=== PATIENT | female | born 1980 | race American Indian/Alaskan Native ===

== ENCOUNTER 2017-09-21 11:57 | Emergency (ER) | payer OTHER ==
[2017-09-21 12:50] LABS: Basophils % (Auto) 0.7 % (0.0-1.8); Eosinophils % (Auto) 0.8 % (0.0-4.3); Hematocrit 40.9 % (30.3-42.9); Hemoglobin 13.4 gm/dl (10.1-14.3); Mean Corpuscular HGB Conc 33 % (30-34); Mean Corpuscular Hemoglobin 28 pg (28-32); Mean Corpuscular Volume 86 fl (79-97); Platelet Count 346 K/mm3 (140-440); Red Blood Count 4.79 M/mm3 (3.65-5.03); Red Cell Distribution Width 13.4 % (13.2-15.2); White Blood Count 5.4 K/mm3 (4.5-11.0)
[2017-09-21 13:08] LABS: Anion Gap 18 mmol/L; BUN/Creatinine Ratio 10; Blood Urea Nitrogen 6 mg/dL (7-17); Calcium 9.1 mg/dL (8.4-10.2); Carbon Dioxide 22 mmol/L (22-30); Chloride 100.4 mmol/L (98-107); Glucose 98 mg/dL (65-100); Sodium 136 mmol/L (137-145)
[2017-09-21 13:20] LABS: Bilirubin,Urine NEG (Negative); Blood,Urine MOD (Negative); Ketones,Urine NEG (Negative); Leukocyte Esterase,Urine TR (Negative); Mucus,Urine 1+ /HPF; Nitrite,Urine NEG (Negative); Protein,Urine <15 mg/dL mg/dL (Negative)
--- NOTE | 2017-09-21 15:16 | XRay Report ---
FINAL REPORT PROCEDURE: XR CHEST ROUTINE 2V TECHNIQUE: Two views of the chest are obtained HISTORY: chest pain COMPARISON: No prior studies are available for comparison. FINDINGS: The heart is normal in size. There is no focal infiltrate, pneumothorax or pleural effusion. IMPRESSION: No abnormalities are seen.
[2017-09-21] MEDS ORDERED: TORADOL IM ONE (21:03)
[2017-09-21] MEDS ORDERED: PERCOCET 5/325 PO ONE (21:03)
[2017-09-21 21:20] VITALS: BP 132/91
--- NOTE | 2017-09-21 21:22 | Emergency Department Report ---
ED Chest Pain HPI - General Chief Complaint: Chest Pain Stated Complaint: CHEST PAIN Time Seen by Provider: 09/21/17 20:49 Source: patient Mode of arrival: Ambulatory Limitations: No Limitations - History of Present Illness Initial Comments: 37-year-old female with a past medical history of -induced hypertension 23 years ago that resolved after delivery presents hospitalist complaints of right-sided neck and right-sided and sternal chest pain 6 days. Pain is constant, aching sharp. Rated 10/10 intensity. With movement and palpation. Patient denies shortness of breath, diaphoresis, fever, cough, or recent trauma. Patient states her BP was checked 5 months ago and she was not hypertensive. No complaints of calf tenderness, edema, recent travel, control pill use, history of PE status DVT. Severity scale (0 -10): 10 - Related Data Previous Rx's Medication Instructions Recorded Last Taken Type HYDROcodone/APAP 5-325 [[place] 1 each PO Q4HR PRN #20 tablet 09/21/17 Unknown Rx 5/325] Ibuprofen [Motrin] 800 mg PO Q8HR PRN #30 tablet 09/21/17 Unknown Rx Allergies Allergy/AdvReac Type Severity Reaction Status Date / Time No Known Allergies Allergy Unverified 09/21/17 12:22 Heart Score - HEART Score History: Slightly suspicious EKG: Normal Age: < 45 Risk factors: No known risk factors Troponin: < normal limit HEART Score: 0 ED Review of Systems ROS: Stated complaint: CHEST PAIN Other details as noted in HPI Comment: All other systems reviewed and negative Other: Constitutional: No fevers chills Eyes: No eye pain visual changes ENT: No ear pain or throat pain Neck: Denies pain Respiratory: Denies cough wheezing shortness of breath Cardiovascular: Deniepalpitations, syncope GI: Denies abdominal pain,vomiting, diarrhea : Denies dysuria Musculoskeletal: Denies back pain Skin: Denies rash, lesions, erythema Neurologic: Denies headache, numbness, weakness Psychiatric: Denies suicidal ideation, hallucinations ED Past Medical Hx - Past Medical History Hx Hypertension: Yes (during childbirth) - Social History Smoking Status: Never Smoker Substance Use Type: Alcohol - Medications Home Medications: Home Medications Medication Instructions Recorded Confirmed Last Taken Type HYDROcodone/APAP 5-325 [[place] 1 each PO Q4HR PRN #20 tablet 09/21/17 Unknown Rx 5/325] Ibuprofen [Motrin] 800 mg PO Q8HR PRN #30 tablet 09/21/17 Unknown Rx ED Physical Exam - General Limitations: No Limitations - Other Other exam information: General: No limitations, patient is alert in no acute distress Head exam: Atraumatic, normocephalic Eyes exam: Normal appearance ENT: Moist mucous membrane, normal oropharynx Neck exam: Normal inspection, full range of motion, no meningismus nontender Respiratory exam: Clear to auscultation bilateral, no wheezes, rales, crackles Cardiovascular: Normal rate and rhythm, tenderness to right trapezius and upper thoracic rale. Tenderness to right upper chest wall and sternum Abdomen: Soft, nondistended, and nontender, with normal bowel sounds, no rebound, or guarding Extremity: Full range of motion normal inspection no deformity, tenderness or edema Back: Normal Inspection, full range of motion, no tenderness Neurologic: Alert, oriented x3, cranial nerves intact, no motor or sensory deficit Psychiatric: normal affect, normal mood Skin: Warm, dry, intact ED Course Vital Signs 09/21/17 09/21/17 09/21/17 12:18 18:00 20:46 Temperature 98.6 F 98.4 F Pulse Rate 95 H 73 Respiratory 18 18 18 Rate Blood Pressure 162/102 150/87 Blood Pressure [Right] O2 Sat by Pulse 99 100 100 Oximetry 09/21/17 09/21/17 21:19 21:20 Temperature Pulse Rate 70 Respiratory 18 18 Rate Blood Pressure Blood Pressure 132/91 [Right] O2 Sat by Pulse 100 Oximetry - Reevaluation(s) Reevaluation #1: 09/21/17 22:07 pain improve her Percocet and Toradol patient now able to move BARBARA score - Barbara Score Age > 65: (0) No Aspirin use within the Past 7 Days: (0) No 3 or more CAD Risk Factors: (0) No 2 or more Angina events in past 24 hrs: (0) No Known CAD with more than 50% Stenosis: (0) No Elevated Cardiac Markers: (0) No ST Deviation Greater than 0.5mm: (0) No BARBARA Score: 0 ED Medical Decision Making - Lab Data Result diagrams: 09/21/17 12:29 09/21/17 12:29 Lab Results 11/12/17 11/12/17 11/12/17 Range/Units 12:29 12:29 12:52 WBC 5.4 (4.5-11.0) K/mm3 RBC 4.79 (3.65-5.03) M/mm3 Hgb 13.4 (10.1-14.3) gm/dl Hct 40.9 (30.3-42.9) % MCV 86 (79-97) fl MCH 28 (28-32) pg MCHC 33 (30-34) % RDW 13.4 (13.2-15.2) % Plt Count 346 (140-440) K/mm3 Lymph % (Auto) 34.2 (13.4-35.0) % [place] % (Auto) 10.9 H (0.0-7.3) % Eos % (Auto) 0.8 (0.0-4.3) % Baso % (Auto) 0.7 (0.0-1.8) % Lymph # 1.8 (1.2-5.4) K/mm3 [place] # 0.6 (0.0-0.8) K/mm3 Eos # 0.0 (0.0-0.4) K/mm3 Baso # 0.0 (0.0-0.1) K/mm3 Seg Neutrophils % 53.4 (40.0-70.0) % Seg Neutrophils # 2.9 (1.8-7.7) K/mm3 Sodium 136 L (137-145) mmol/L Potassium 4.0 (3.6-5.0) mmol/L Chloride 100.4 (98-107) mmol/L Carbon Dioxide 22 (22-30) mmol/L Anion Gap 18 mmol/L BUN 6 L (7-17) mg/dL Creatinine 0.6 L (0.7-1.2) mg/dL Estimated GFR > 60 ml/min BUN/Creatinine Ratio 10 % Glucose 98 (65-100) mg/dL Calcium 9.1 (8.4-10.2) mg/dL Troponin T < 0.010 (0.00-0.029) ng/mL Urine Color Yellow (Yellow) Urine Turbidity Clear (Clear) Urine pH 6.0 (5.0-7.0) Ur Specific [place] 1.019 (1.003-1.030) Urine Protein <15 mg/dl (Negative) mg/dL Urine Glucose (UA) Neg (Negative) mg/dL Urine Ketones Neg (Negative) mg/dL Urine Blood Mod (Negative) Urine Nitrite Neg (Negative) Urine Bilirubin Neg (Negative) Urine Urobilinogen 2.0 (<2.0) mg/dL Ur Leukocyte Esterase Tr (Negative) Urine WBC (Auto) 12.0 H (0.0-6.0) /HPF Urine RBC (Auto) 5.0 (0.0-6.0) /HPF U Epithel Cells (Auto) 27.0 H (0-13.0) /HPF Urine Mucus 1+ /HPF Urine HCG, Qual Negative (Negative) 09/21/17 09/21/17 Range/Units 15:22 18:21 WBC (4.5-11.0) K/mm3 RBC (3.65-5.03) M/mm3 Hgb (10.1-14.3) gm/dl Hct (30.3-42.9) % MCV (79-97) fl MCH (28-32) pg MCHC (30-34) % RDW (13.2-15.2) % Plt Count (140-440) K/mm3 Lymph % (Auto) (13.4-35.0) % [place] % (Auto) (0.0-7.3) % Eos % (Auto) (0.0-4.3) % Baso % (Auto) (0.0-1.8) % Lymph # (1.2-5.4) K/mm3 [place] # (0.0-0.8) K/mm3 Eos # (0.0-0.4) K/mm3 Baso # (0.0-0.1) K/mm3 Seg Neutrophils % (40.0-70.0) % Seg Neutrophils # (1.8-7.7) K/mm3 Sodium (137-145) mmol/L Potassium (3.6-5.0) mmol/L Chloride (98-107) mmol/L Carbon Dioxide (22-30) mmol/L Anion Gap mmol/L BUN (7-17) mg/dL Creatinine (0.7-1.2) mg/dL Estimated GFR ml/min BUN/Creatinine Ratio % Glucose (65-100) mg/dL Calcium (8.4-10.2) mg/dL Troponin T < 0.010 < 0.010 (0.00-0.029) ng/mL Urine Color (Yellow) Urine Turbidity (Clear) Urine pH (5.0-7.0) Ur Specific [place] (1.003-1.030) Urine Protein (Negative) mg/dL Urine Glucose (UA) (Negative) mg/dL Urine Ketones (Negative) mg/dL Urine Blood (Negative) Urine Nitrite (Negative) Urine Bilirubin (Negative) Urine Urobilinogen (<2.0) mg/dL Ur Leukocyte Esterase (Negative) Urine WBC (Auto) (0.0-6.0) /HPF Urine RBC (Auto) (0.0-6.0) /HPF U Epithel Cells (Auto) (0-13.0) /HPF Urine Mucus /HPF Urine HCG, Qual (Negative) - EKG Data -: EKG Interpreted by Nh EKG shows normal: sinus rhythm, axis (qrs 56), intervals (pr normal), QRS complexes (78), ST-T waves (no stemi, t inv, prob lvh) Rate: normal (89) - EKG Data When compared to previous EKG there are: previous EKG unavailable - Radiology Data Radiology results: report reviewed (two-view chest x-ray: No acute findings) - Medical Decision Making Patient has not had any PE risk factors or DVT symptoms. Patient also denies shortness of breath without signs of hypoxia or tachycardia. Chest pain is reproducible with movement and palpation and likely muscle skeletal in origin. EKG suggestive of LVH. No STEMI. cardiac enzymes negative 3. Chest x-ray unremarkable. Patient will be discharged home with symptomatic treatment for muscle school to pain. Patient's blood pressure was elevated initially but spontaneously improved without any treatment. Patient will be instructed to continue to monitor her blood pressure at home and to follow up No urinary symptoms reported and WBC count in UA associate with high epi count therefore likely contamination - Differential Diagnosis pleurisy, pneumothorax, MSK pain, NJ, dissection, costochondritis, muscle s Critical Care Time: No Critical care attestation.: If time is entered above; I have spent that time in minutes in the direct care of this critically ill patient, excluding procedure time. ED Disposition Clinical Impression: Chest wall pain, Elevated blood pressure reading Disposition: TO HOME OR SELFCARE Is pt being admited?: No Does the pt Need Aspirin: No Condition: Stable Instructions: How to Take a Blood Pressure (ED), Thoracic Pain (ED) Additional Instructions: Take the medication as prescribed. Continue to monitor your blood pressure at home for signs of elevation. Take these measurements to the primary care doctor for further treatment and to determine if blood pressure medication. Prescriptions: HYDROcodone/APAP 5-325 [[place]ath 5/325] 1 each PO Q4HR PRN #20 tablet PRN Reason: Pain Ibuprofen [Motrin] 800 mg PO Q8HR PRN #30 tablet PRN Reason: Overdose Referrals: PRIMARY CARE, [Primary Care Provider] - 3-5 Days [facility] [Provider Group] - 3-5 Days Time of Disposition: 22:08
== END 2017-09-21 22:30 | disposition home or self-care (01) ==
LOC: ED 11:57
DX: R07.89 Other chest pain (principal); R03.0 Elevated blood-pressure reading, without diagnosis of hypertension; M54.2 Cervicalgia
CPT/HCPCS: 36415; 71020; 80048; 81001; 81025; 84484; 85025; 93005; 93010; 96372; 99284; J1885

== ENCOUNTER 2018-01-30 23:18 | Emergency (ER) | payer OTHER ==
[2018-01-31 01:26] VITALS: BP 146/86
[2018-01-31 02:00] LABS: Basophils % (Auto) 0.5 % (0.0-1.8); Eosinophils # (Auto) 0.1 K/mm3 (0.0-0.4); Eosinophils % (Auto) 0.7 % (0.0-4.3); Hematocrit 37.5 % (30.3-42.9); Hemoglobin 12.7 gm/dl (10.1-14.3); Lymphocytes # (Auto) 2.4 K/mm3 (1.2-5.4); Lymphocytes % (Auto) 26.4 % (13.4-35.0); Mean Corpuscular HGB Conc 34 % (30-34); Mean Corpuscular Hemoglobin 28 pg (28-32); Mean Corpuscular Volume 83 fl (79-97); Monocytes % (Auto) 11.1 % (0.0-7.3); Platelet Count 331 K/mm3 (140-440); Red Blood Count 4.52 M/mm3 (3.65-5.03); Red Cell Distribution Width 13.3 % (13.2-15.2)
--- NOTE | 2018-01-31 03:56 | Ultrasound Report ---
FINAL REPORT PROCEDURE: US OB TRANSVAGINAL TECHNIQUE: Real-time transvaginal sonography of the uterus, placenta, amniotic fluid, adnexa, and fetus was performed with image documentation. Measurements were obtained to determine age/size. M-mode Doppler was used to document heartbeat. HISTORY: vaginal Bleeding COMPARISON: No prior studies are available for comparison. FINDINGS: No intrauterine is identified. There is nonspecific fluid in the endometrial cavity. Uterus measures 11.1 x 6.6 x 7.1 centimeters. Right ovary measures 3.3 x 1.6 x 1.8 centimeters. There is a thick-walled cyst measuring 17 millimeters. Ectopic is considered unlikely but correlation with beta HCG measurements may be helpful. Left ovary measures 3 x 1.4 x 1.4 centimeters. There is no free pelvic fluid. IMPRESSION: No intrauterine is identified. There is nonspecific fluid in the endometrial cavity. There is a thick-walled cyst in the right ovary measuring 17 millimeters. Ectopic is considered unlikely but correlation with beta HCG measurements may be helpful.
--- NOTE | 2018-01-31 03:56 | Ultrasound Report ---
FINAL REPORT PROCEDURE: US OB < = 14 WEEKS FETUS TECHNIQUE: Real-time transabdominal sonography of the uterus, placenta, amniotic fluid, adnexa, and fetus was performed with image documentation. Measurements were obtained to determine age/size. M-mode Doppler was used to document heartbeat. CPT 55889 HISTORY: vaginal Bleeding COMPARISON: No prior studies are available for comparison. FINDINGS: No intrauterine is identified. There is nonspecific fluid in the endometrial cavity. Uterus measures 11.1 x 6.6 x 7.1 centimeters. Right ovary measures 3.3 x 1.6 x 1.8 centimeters. There is a thick-walled cyst measuring 17 millimeters. Ectopic is considered unlikely but correlation with beta HCG measurements may be helpful. Left ovary measures 3 x 1.4 x 1.4 centimeters. There is no free pelvic fluid. IMPRESSION: No intrauterine is identified. There is nonspecific fluid in the endometrial cavity. There is a thick-walled cyst in the right ovary measuring 17 millimeters. Ectopic is considered unlikely but correlation with beta HCG measurements may be helpful.
--- NOTE | 2018-01-31 04:41 | Emergency Department Report ---
ED HPI - General Chief complaint: Vaginal Bleeding Stated complaint: VAG BLEED, Time Seen by Provider: 01/31/18 02:44 Source: patient Mode of arrival: Ambulatory Limitations: No Limitations - History of Present Illness Initial comments: Patient is a 37-year-old black female who is stating that she had some vaginal spotting earlier tonight. Patient states there is mild abdominal cramping in the right lower quadrant. Patient estimates she is between 10 and 11 weeks . Patient does have a positive test was not had an ultrasound as of yet. Patient states that she does not have any nausea vomiting or syncopal episodes of chest pain shortness of breath at this time. Radiation: RLQ Severity: mild Severity scale (0 -10): 3 Quality: cramping Consistency: intermittent Improves with: none Worsens with: none - Related Data Previous Rx's Medication Instructions Recorded Last Taken Type HYDROcodone/APAP 5-325 [[place] 1 each PO Q4HR PRN #20 tablet 09/21/17 Unknown Rx 5/325] Ibuprofen [Motrin] 800 mg PO Q8HR PRN #30 tablet 09/21/17 Unknown Rx Allergies Allergy/AdvReac Type Severity Reaction Status Date / Time No Known Allergies Allergy Unverified 09/21/17 12:22 ED Review of Systems ROS: Stated complaint: VAG BLEED, Other details as noted in HPI Comment: All other systems reviewed and negative ED Past Medical Hx - Past Medical History Hx Hypertension: Yes (during childbirth) - Surgical History Past Surgical History?: No - Social History Smoking Status: Never Smoker Substance Use Type: None - Medications Home Medications: Home Medications Medication Instructions Recorded Confirmed Last Taken Type HYDROcodone/APAP 5-325 [[place] 1 each PO Q4HR PRN #20 tablet 09/21/17 Unknown Rx 5/325] Ibuprofen [Motrin] 800 mg PO Q8HR PRN #30 tablet 09/21/17 Unknown Rx ED Physical Exam - General Limitations: No Limitations General appearance: alert, in no apparent distress - Head Head exam: Present: atraumatic, normocephalic - Eye Eye exam: Present: normal appearance - ENT ENT exam: Present: mucous membranes moist - Neck Neck exam: Present: normal inspection - Respiratory Respiratory exam: Present: normal lung sounds bilaterally. Absent: respiratory distress - Cardiovascular Cardiovascular Exam: Present: regular rate, normal rhythm. Absent: systolic murmur, diastolic murmur, rubs, gallop - GI/Abdominal GI/Abdominal exam: Present: soft, normal bowel sounds - Extremities Exam Extremities exam: Present: normal inspection - Back Exam Back exam: Present: normal inspection - Neurological Exam Neurological exam: Present: alert, oriented X3 - Psychiatric Psychiatric exam: Present: normal affect, normal mood - Skin Skin exam: Present: warm, dry, intact, normal color. Absent: rash ED Course Vital Signs 01/31/18 01:20 Temperature 99 F Pulse Rate 106 H Respiratory 18 Rate Blood Pressure 146/86 O2 Sat by Pulse 100 Oximetry ED Medical Decision Making - Lab Data Result diagrams: 01/31/18 01:29 Lab Results 01/31/18 01/31/18 01/31/18 Range/Units 01:29 01:29 01:39 WBC 9.0 (4.5-11.0) K/mm3 RBC 4.52 (3.65-5.03) M/mm3 Hgb 12.7 (10.1-14.3) gm/dl Hct 37.5 (30.3-42.9) % MCV 83 (79-97) fl MCH 28 (28-32) pg MCHC 34 (30-34) % RDW 13.3 (13.2-15.2) % Plt Count 331 (140-440) K/mm3 Lymph % (Auto) 26.4 (13.4-35.0) % [place] % (Auto) 11.1 H (0.0-7.3) % Eos % (Auto) 0.7 (0.0-4.3) % Baso % (Auto) 0.5 (0.0-1.8) % Lymph # 2.4 (1.2-5.4) K/mm3 [place] # 1.0 H (0.0-0.8) K/mm3 Eos # 0.1 (0.0-0.4) K/mm3 Baso # 0.0 (0.0-0.1) K/mm3 Seg Neutrophils % 61.3 (40.0-70.0) % Seg Neutrophils # 5.5 (1.8-7.7) K/mm3 HCG, Quant 4723 H (0-4) mIU/mL Blood Type B POSITIVE Antibody Screen Negative - Radiology Data Radiology results: report reviewed Ultrasound of the uterus shows no intrauterine identified there is nonspecific fluid in the endometrial cavity there is a thick wall cyst in the right ovary measuring 17 mm ectopic is considered unlikely correlation with beta hCG measurements may be helpful - Medical Decision Making No IUP was seen however the patient's beta Quant was high enough that she should be in the range that IUP will be seen. Quant was 4700. I did speak with with CORRECTIONAL CLASSIFICATION COUNSELOR and she suggested that the patient return in 2 days for repeat Quant to determine if the patient's miscarry or suspected ectopic. Patient is stable and in no acute distress at this time. Critical care attestation.: If time is entered above; I have spent that time in minutes in the direct care of this critically ill patient, excluding procedure time. ED Disposition Clinical Impression: Encounter for assessment for suspected ectopic Disposition: DC-01 TO HOME OR SELFCARE Is pt being admited?: No Does the pt Need Aspirin: No Condition: Stable Instructions: Ectopic (ED) Additional Instructions: Information on ectopic pregnancies has been providing in your packet Referrals: SONIYA ANDREA MD [Primary Care Provider] - 3-5 Days
[2018-01-31 07:03] LABS: Bilirubin,Urine NEG (Negative); Blood,Urine SM (Negative); Color,Urine Yellow (Yellow); Protein,Urine <15 mg/dL mg/dL (Negative); Urobilinogen,Urine < 2.0 mg/dL (<2.0)
== END 2018-01-31 05:25 | disposition home or self-care (01) ==
LOC: ED 23:18
DX: N93.9 Abnormal uterine and vaginal bleeding, unspecified (principal); I10 Essential (primary) hypertension
CPT/HCPCS: 36415; 76801; 76817; 81001; 84702; 85025; 86850; 86900; 86901; 99283

== ENCOUNTER 2019-05-28 07:23 | Inpatient (IN) | payer OTHER ==
[2019-05-28 09:46] LABS: Hemoglobin 11.9 gm/dl (10.1-14.3); Mean Corpuscular HGB Conc 34 % (30-34); Mean Corpuscular Volume 82 fl (79-97); Platelet Count 331 K/mm3 (140-440); Red Blood Count 4.28 M/mm3 (3.65-5.03); Red Cell Distribution Width 13.7 % (13.2-15.2)
[2019-05-28 10:53] LABS: Platelet Estimate Consistent w Auto; RBC Morphology Normal; Total Cells Counted 100
[2019-05-28] MEDS ORDERED: BRETHINE IVP PRN (11:40)
[2019-05-28] MEDS ORDERED: PHENERGAN PO PRN ×2 (11:40→14:35)
[2019-05-28] MEDS ORDERED: STADOL IV PRN (11:40)
[2019-05-28] MEDS ORDERED: MINERAL OIL PO PRN (11:40)
[2019-05-28] MEDS ORDERED: SUBLIMAZE IV PRN (11:40)
[2019-05-28] MEDS ORDERED: ZOFRAN IV PRN ×2 (11:40→14:35)
[2019-05-28] MEDS ORDERED: BRETHINE SUB-Q PRN (11:40)
--- NOTE | 2019-05-28 11:47 | History and Physical Report ---
History of Present Illness Date of examination: 05/28/19 Chief complaint: Labor History of present illness: Pt is a 39yo BF EDC 06/04/19; EGA 39 0/7 weeks presents to L&D complaining of RUC's q 3-4 mins. She received care at [facility] since 11 weeks and co-managed by [facility] for AMA, uterine fibroids and Chronic hypertension. records are available and GBS is negative. 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 Social history: no significant social history, - Obstetrical History Expected Date of Delivery: 06/04/19 Actual Gestation: 39 Week(s) 0 Day(s) : 5 Medications and Allergies Allergies Allergy/AdvReac Type Severity Reaction Status Date / Time No Known Allergies Allergy Verified 11/15/18 14:20 Home Medications Medication Instructions Recorded Confirmed Last Taken Type HYDROcodone/APAP 5-325 [[place] 1 each PO Q4HR PRN #20 tablet 09/21/17 Unknown Rx 5/325] Ibuprofen [Motrin] 800 mg PO Q8HR PRN #30 tablet 09/21/17 Unknown Rx Acetaminophen 500 mg PO Q8H PRN #20 tablet 11/15/18 Unknown Rx Review of Systems All systems: negative - Vital Signs Vital signs: Vital Signs Pulse BP 84 129/87 05/28/19 08:16 05/28/19 08:16 Temp Pulse Resp BP Pulse Ox 98.2 F 82 16 129/87 98 05/28/19 08:24 05/28/19 09:12 05/28/19 08:24 05/28/19 08:16 05/28/19 09:12 - Physical Exam Breasts: Positive: deferred Cardiovascular: Regular rate Lungs: Positive: Clear to auscultation Abdomen: Positive: normal appearance Genitourinary (Female): Positive: normal external genitalia Vagina: Positive: normal moisture Uterus: Positive: enlarged Extremities: Positive: normal - Obstetrical FHR: category 1 Uterine Contraction Monitor Mode: External Cervical Dilatation: 6 (per nurse) Cervical Effacement Percentage: 80 (per nurse) station: -2 Uterine Contraction Pattern: Regular Uterine Tone Measurement Phase: Contraction Uterine Contraction Intensity: Strong/Firm Results Result Diagrams: 05/28/19 09:15 Abnormal lab results 05/28/19 Range/Units 09:15 Seg Neuts % (Manual) 75.0 H (40.0-70.0) % All other labs normal. Assessment and Plan - Patient Problems (1) 39 weeks gestation of Onset Date: 05/28/19 Current Visit: Yes Status: Acute Plan to address problem: A: IUP @ 39 0/7 weeks in labor AMA P: Admit to L&D for expectant vaginal delivery (2) AMA (advanced maternal age) multigravida 35+ Onset Date: 05/28/19 Current Visit: Yes Status: Acute Qualifiers: Trimester: third trimester Qualified Code(s): O09.523 - Supervision of elderly multigravida, third trimester
[2019-05-28] MEDS ORDERED: PITOCin/NS 30 UNIT/500ML 30 UNITS/500 ML BAG IV SCH (12:00)
[2019-05-28] MEDS: LACTATED RINGERS 1,000 ML IV SCH ×2 (12:00→13:13)
[2019-05-28] MEDS ORDERED: PITOCin/NS 20 UNIT/1000ML DRIP 20 UNITS/1,000 ML BAG IV SCH ×2 (12:00→15:00)
[2019-05-28] MEDS ORDERED: XYLOCAINE 2% INFILTRATI ONE (12:40)
[2019-05-28] MEDS ORDERED: NARCAN 2 MG/2 ML IV PRN (12:46)
--- NOTE | 2019-05-28 12:46 | Anesthesia Consultation ---
Anesthesia Consult and Med Hx Date of service: 05/28/19 - Airway Anesthetic Teeth Evaluation: Good ROM Head & Neck: Adequate Mental/Hyoid Distance: Adequate Mallampati Class: Class II Intubation Access Assessment: Probably Good - Pulmonary Exam CTA: Yes - Cardiac Exam Cardiac Exam: RRR - Pre-Operative Health Status ASA Pre-Surgery Classification: ASA2 Proposed Anesthetic Plan: Epidural - Pulmonary Hx Asthma: No - Cardiovascular System Hx Hypertension: Yes - Central Nervous System Hx Seizures: No Hx Psychiatric Problems: No - Endocrine Hx Renal Disease: No Hx Hypothyroidism: No Hx Hyperthyroidism: No - Hematic Hx Sickle Cell Disease: No - Other Systems Hx Alcohol Use: No
[2019-05-28] MEDS ORDERED: fentaNYL-BUPIV 2 MCG/ML-0.125% 200 MCG/100 ML BAG EPIDURAL SCH (13:00)
--- NOTE | 2019-05-28 14:34 | Procedure Note ---
OB Delivery Note - Delivery Date of Delivery: 05/28/19 Surgeon: JULISSA MALIK Estimated blood loss: 100cc - Vaginal Delivery presentation: vertex Delivery position: OA Intrapartum events: none Delivery induction: none Delivery augmentation: rupture of membranes Delivery monitor: external FHT, external uterine Route of delivery: Delivery placenta: spontaneous Delivery cord: nuchal cord (x1), 3 umbilical vessels Episiotomy: none Anesthesia: epidural Delivery comments: Infant delivered OA and placed on Mom's chest for [id number] bonding and del ayed cord clamping, cut by Dad - Infant A at 1 minute: 8 at 5 minutes: 9 Gender: Male ([id number])
[2019-05-28] MEDS ORDERED: BENADRYL PO PRN (14:35)
[2019-05-28] MEDS ORDERED: TUCKS PAD TP PRN (14:35)
[2019-05-28] MEDS ORDERED: PHENERGAN PR PRN (14:35)
[2019-05-28] MEDS ORDERED: MILK OF MAGNESIA PO PRN (14:35)
[2019-05-28] MEDS ORDERED: TYLENOL PO PRN (14:35)
[2019-05-28] MEDS ORDERED: DULCOLAX PR PRN (14:35)
[2019-05-28] MEDS ORDERED: LANSINOH TP PRN (14:35)
[2019-05-28] MEDS ORDERED: SODIUM CHLORIDE FLUSH SYRINGE 10 ML IV SCH (15:00)
[2019-05-28] MEDS: NORCO 5/325 PO PRN (20:23)
[2019-05-28] MEDS: FEOSOL PO SCH (22:23)
[2019-05-28] MEDS: COLACE PO SCH (22:23)
[2019-05-29 03:18] LABS: Hematocrit 32.7 % (30.3-42.9); Hemoglobin 10.8 gm/dl (10.1-14.3)
[2019-05-29] MEDS: IBUPROFEN PO SCH ×3 (04:57→17:59)
[2019-05-29] MEDS ORDERED: BOOSTRIX IM ONE (06:00)
--- NOTE | 2019-05-29 11:55 | Discharge Summary ---
Providers - Providers Date of Admission: 05/28/19 07:24 Date of discharge: 05/29/19 Attending physician: JULISSA MALIK Primary care physician: JULISSA MALIK Hospitalization Reason for admission: active labor, IUP at term Delivery: Episiotomy: none Laceration: none Other procedures: none complications: none Discharge diagnosis: IUP at term delivered [place] baby: male Hospital course: Unremarkable. Condition at discharge: Good Disposition: DC-01 TO HOME OR SELFCARE - Discharge Diagnoses (1) 39 weeks gestation of Status: Resolved (2) AMA (advanced maternal age) multigravida 35+ Status: Chronic Qualifiers: Trimester: third trimester Qualified Code(s): O09.523 - Supervision of elderly multigravida, third trimester (3) (normal spontaneous vaginal delivery) Status: Resolved Plan - Discharge Medications Prescriptions: Ferrous Sulfate [Feosol 325 MG tab] 325 mg PO BID #60 tablet Ibuprofen [Motrin 600 MG tab] 600 mg PO Q6HR #30 tablet Vit-Fe Fumar-FA [ Vitamin] 1 each PO QDAY #30 tablet - Provider Discharge Summary Activity: routine, no sex for 6 weeks, no heavy lifting 4 weeks, no strenuous exercise Diet: routine Instructions: routine Additional instructions: [] Smoking cessation referral if applicable(refer to patient education folder for contact #) [] Refer to [facility] Center Booklet Call your doctor immediately for: * Fever > 100.5 * Heavy vaginal bleeding ( >1 pad per hour) * Severe persistent headache * Shortness of breath * Reddened, hot, painful area to leg or breast * Drainage or odor from incision. * Keep incision clean and dry at all times and follow doctor's instructions regarding bathing/showering - Follow up plan Follow up: JULISSA MALIK MD [Primary Care Provider] - 6 Weeks
--- NOTE | 2019-05-29 11:58 | Progress Note ---
Assessment and Plan - Patient Problems (1) 39 weeks gestation of Onset Date: 05/28/19 Current Visit: Yes Status: Resolved (2) AMA (advanced maternal age) multigravida 35+ Onset Date: 05/28/19 Current Visit: Yes Status: Chronic Qualifiers: Trimester: third trimester Qualified Code(s): O09.523 - Supervision of elderly multigravida, third trimester (3) (normal spontaneous vaginal delivery) Onset Date: 05/29/19 Current Visit: Yes Status: Resolved Plan to address problem: A: S/P - PPD #1 Doing well Asymptomatic anemia - stable P: May go home today. Subjective - Subjective Date of service: 05/29/19 Principal diagnosis: s/p - PPD #1 Interval history: Pt is feeling well without complaints. Bleeding improved. Patient reports: appetite normal, voiding normally, pain well controlled, flatus, ambulating normally, no dizzy ambulation, no nauseated [place]: doing well, nursing well, bottle feeding Objective - Vital Signs Latest vital signs: Vital Signs Temp Pulse Resp BP BP Pulse Ox 05/29/19 08:05 98 F 97 H 20 130/70 05/29/19 01:42 98.1 F 79 20 131/89 98 05/28/19 20:44 97.9 F 91 H 20 135/83 96 05/28/19 17:55 97.8 F 78 20 112/58 98 05/28/19 15:59 71 134/76 05/28/19 15:47 70 152/78 05/28/19 15:32 72 127/66 05/28/19 15:17 70 137/70 05/28/19 15:01 98.2 F 76 119/70 119/70 05/28/19 14:58 78 136/77 05/28/19 14:56 77 131/71 05/28/19 14:54 91 H 131/72 05/28/19 14:52 86 134/67 05/28/19 14:50 68 137/66 05/28/19 14:48 77 126/59 05/28/19 14:46 80 127/62 05/28/19 14:44 73 131/61 05/28/19 14:42 75 132/67 05/28/19 14:41 67 142/63 05/28/19 14:38 71 137/65 07/19/19 14:36 86 138/63 05/28/19 14:34 78 130/60 05/28/19 14:32 75 139/76 05/28/19 14:30 89 141/76 05/28/19 14:28 78 130/63 05/28/19 14:26 74 144/61 05/28/19 14:24 78 133/58 05/28/19 14:22 81 147/73 98 05/28/19 14:21 110 H 164/109 05/28/19 14:19 98 H 177/87 05/28/19 14:17 109 H 99 05/28/19 14:16 84 158/80 05/28/19 14:14 99 H 90 05/28/19 14:12 74 170/74 100 05/28/19 14:09 74 140/64 05/28/19 14:07 84 100 05/28/19 14:06 90 136/69 05/28/19 14:05 88 136/61 05/28/19 14:02 78 99 05/28/19 14:00 71 127/63 05/28/19 13:58 82 131/70 05/28/19 13:57 95 H 97 05/28/19 13:56 73 147/59 05/28/19 13:54 86 137/77 05/28/19 13:52 76 132/62 99 05/28/19 13:50 73 132/63 05/28/19 13:48 75 133/66 05/28/19 13:47 80 100 05/28/19 13:46 76 130/64 05/28/19 13:44 75 130/61 05/28/19 13:42 85 100 05/28/19 13:41 96 H 190/72 05/28/19 13:38 91 H 132/83 05/28/19 13:37 91 H 99 05/28/19 13:35 89 147/79 05/28/19 13:32 94 H 140/70 100 05/28/19 13:30 86 140/70 05/28/19 13:29 81 149/70 05/28/19 13:27 98 H 100 05/28/19 13:26 83 144/86 05/28/19 13:24 77 152/86 05/28/19 13:22 87 133/69 100 05/28/19 13:20 76 140/74 05/28/19 13:18 77 141/69 05/28/19 13:17 75 100 05/28/19 13:16 98 H 135/75 05/28/19 13:14 76 135/68 05/28/19 13:12 75 135/63 100 05/28/19 13:10 80 126/61 05/28/19 13:08 68 143/74 05/28/19 13:07 69 100 05/28/19 13:06 73 141/70 05/28/19 13:04 73 126/68 05/28/19 13:02 72 125/59 100 05/28/19 13:01 82 147/80 05/28/19 12:58 68 139/73 05/28/19 12:57 76 100 05/28/19 12:56 81 129/77 05/28/19 12:54 93 H 139/78 05/28/19 12:52 77 133/69 99 05/28/19 12:50 78 145/74 05/28/19 12:48 85 145/80 05/28/19 12:47 96 H 100 05/28/19 12:46 93 H 140/84 05/28/19 12:44 82 138/83 05/28/19 12:42 90 144/87 99 05/28/19 12:40 86 148/79 05/28/19 12:38 88 135/74 05/28/19 12:37 84 99 05/28/19 12:32 89 100 05/28/19 12:30 98 H 156/83 05/28/19 12:27 100 H 100 05/28/19 12:22 105 H 100 05/28/19 12:17 78 99 05/28/19 12:12 89 99 05/28/19 11:57 97.3 F L 82 18 134/90 134/90 Intake and Output 05/28/19 05/29/19 05/29/19 22:59 06:59 14:59 Intake Total 240 600 120 Balance 240 600 120 Intake: IV 0 Left Medial Port Hand 0 Oral 240 240 120 Intake, Free Water 360 Other: Total, Intake Amount 240 240 120 # Voids Void 1 1 Estimated Blood Loss 100 - Exam Breasts: Present: deferred Abdomen: Present: normal appearance, soft Uterus: Present: normal, firm, fundal height below umbilicus Extremities: Present: normal - Labs Labs: Laboratory Tests 05/28/19 05/28/19 05/28/19 09:15 09:15 09:15 WBC 8.9 RBC 4.28 Hgb 11.9 Hct 35.0 MCV 82 MCH 28 MCHC 34 RDW 13.7 Plt Count 331 Add Manual Diff Complete Total Counted 100 Seg Neuts % (Manual) 75.0 H Band Neutrophils % 0 Lymphocytes % (Manual) 16.0 Reactive Lymphs % (Man) 0 Monocytes % (Manual) 7.0 Eosinophils % (Manual) 1.0 Basophils % (Manual) 1.0 Metamyelocytes % 0 Myelocytes % 0 Promyelocytes % 0 Blast Cells % 0 Nucleated RBC % Not Reportable Seg Neutrophils # Man 6.7 Band Neutrophils # 0.0 Lymphocytes # (Manual) 1.4 Abs React Lymphs (Man) 0.0 Monocytes # (Manual) 0.6 Eosinophils # (Manual) 0.1 Basophils # (Manual) 0.1 Metamyelocytes # 0.0 Myelocytes # 0.0 Promyelocytes # 0.0 Blast Cells # 0.0 WBC Morphology Not Reportable Hypersegmented Neuts Not Reportable Hyposegmented Neuts Not Reportable Hypogranular Neuts Not Reportable Smudge Cells Not Reportable Toxic Granulation Not Reportable Toxic Vacuolation Not Reportable Dohle Bodies Not Reportable Pelger-Huet Anomaly Not Reportable Noemi Rods Not Reportable Platelet Estimate Consistent w auto Clumped Platelets Not Reportable Plt Clumps, EDTA Not Reportable Large Platelets Not Reportable Giant Platelets Not Reportable Platelet Satelliting Not Reportable Plt Morphology Comment Not Reportable RBC Morphology Normal Dimorphic RBCs Not Reportable Polychromasia Not Reportable Hypochromasia Not Reportable Poikilocytosis Not Reportable Anisocytosis Not Reportable Microcytosis Not Reportable Macrocytosis Not Reportable Spherocytes Not Reportable Pappenheimer Bodies Not Reportable Sickle Cells Not Reportable Target Cells Not Reportable Tear Drop Cells Not Reportable Ovalocytes Not Reportable Helmet Cells Not Reportable Howard-Valeria Bodies Not Reportable [place] Rings Not Reportable Ashu Cells Not Reportable Bite Cells Not Reportable Crenated Cell Not Reportable Elliptocytes Not Reportable Acanthocytes (Spur) Not Reportable Rouleaux Not Reportable Hemoglobin C Crystals Not Reportable Schistocytes Not Reportable Malaria parasites Not Reportable Jovani Bodies Not Reportable Hem Pathologist Commnt No RPR Nonreactive Hep Bs Antigen Blood Type B POSITIVE Antibody Screen Negative 05/29/19 05/29/19 02:58 07:47 WBC RBC Hgb 10.8 Hct 32.7 MCV MCH MCHC RDW Plt Count Add Manual Diff Total Counted Seg Neuts % (Manual) Band Neutrophils % Lymphocytes % (Manual) Reactive Lymphs % (Man) Monocytes % (Manual) Eosinophils % (Manual) Basophils % (Manual) Metamyelocytes % Myelocytes % Promyelocytes % Blast Cells % Nucleated RBC % Seg Neutrophils # Man Band Neutrophils # Lymphocytes # (Manual) Abs React Lymphs (Man) Monocytes # (Manual) Eosinophils # (Manual) Basophils # (Manual) Metamyelocytes # Myelocytes # Promyelocytes # Blast Cells # WBC Morphology Hypersegmented Neuts Hyposegmented Neuts Hypogranular Neuts Smudge Cells Toxic Granulation Toxic Vacuolation Dohle Bodies Pelger-Huet Anomaly Noemi Rods Platelet Estimate Clumped Platelets Plt Clumps, EDTA Large Platelets Giant Platelets Platelet Satelliting Plt Morphology Comment RBC Morphology Dimorphic RBCs Polychromasia Hypochromasia Poikilocytosis Anisocytosis Microcytosis Macrocytosis Spherocytes Pappenheimer Bodies Sickle Cells Target Cells Tear Drop Cells Ovalocytes Helmet Cells Howard-Valeria Bodies [place] Rings [place] Cells Bite Cells Crenated Cell Elliptocytes Acanthocytes (Spur) Rouleaux Hemoglobin C Crystals Schistocytes Malaria parasites Jovani Bodies Hem Pathologist Commnt RPR Hep Bs Antigen Non-reactive Blood Type Antibody Screen
[2019-05-29] MEDS: COLACE PO SCH ×2 (13:23→21:42)
[2019-05-29] MEDS: PRENATAL VITAMIN PO SCH (13:24)
[2019-05-29] MEDS: FEOSOL PO SCH ×2 (13:24→21:42)
[2019-05-29] MEDS ORDERED: M-M-R II VACCINE SUB-Q ONE (14:35)
[2019-05-29] MEDS: NORCO 5/325 PO PRN (21:43)
[2019-05-30] MEDS: IBUPROFEN PO SCH ×4 (05:02→13:28)
[2019-05-30 09:15] VITALS: BP 138/73
[2019-05-30] MEDS: PRENATAL VITAMIN PO SCH ×2 (10:30→11:03)
[2019-05-30] MEDS: COLACE PO SCH (11:05)
[2019-05-30] MEDS: NORCO 5/325 PO PRN (11:05)
[2019-05-30] MEDS: FEOSOL PO SCH (11:30)
== END 2019-05-30 13:15 | disposition home or self-care (01) | DRG 774 ==
LOC: TRG 07:23 → LD 07:24 → TRG 07:28 → LD 11:38 → OB 18:07
PROVIDERS: ADMIT Obstetrics & Gynecology; ATTEND Obstetrics & Gynecology
PROC: 10E0XZZ Delivery of Products of Conception, External Approach (ICD-10-PCS; principal; 2019-05-28)
PROC: 3E0R3BZ Introduction of Anesthetic Agent into Spinal Canal, Percutaneous Approach (ICD-10-PCS; 2019-05-28)
PROC: 00HU33Z Insertion of Infusion Device into Spinal Canal, Percutaneous Approach (ICD-10-PCS; 2019-05-28)
PROC: 3E0234Z Introduction of Serum, Toxoid and Vaccine into Muscle, Percutaneous Approach (ICD-10-PCS; 2019-05-29)
DX: O10.92 Unspecified pre-existing hypertension complicating childbirth (principal); Z37.0 Single live birth; O90.81 Anemia of the puerperium; D64.9 Anemia, unspecified; Z3A.39 39 weeks gestation of pregnancy; Z23 Encounter for immunization
CPT/HCPCS: 36415; 85007; 85014; 85018; 85025; 86592; 86706; 86850; 86900; 86901; 90715; G0378; A6250; J2590; J7120